=== PATIENT | male | born 1980 | race Caucasian/White ===

== ENCOUNTER 2025-01-30 15:47 | Emergency (ER) | payer BC, SELFPAY ==
[2025-01-30 15:57] VITALS: BP 161/98
[2025-01-30 16:27] LABS: Hematocrit 44.4 % (39.0-52.0); Hemoglobin 15.6 g/dL (13.0-18.0); Mean Corp Hgb Conc. 35.1 g/dL (33.0-37.0); Mean Corpuscular Volume 85.9 fL (80.0-94.0); Nucleated Red Blood Cells % 0 % (-); Red Cell Dist. Width 11.9 % (11.5-14.5)
[2025-01-30 16:36] LABS: ALT (SGPT) 30 U/L (0-50); AST (SGOT) 24 U/L (17-59); Albumin 5.0 g/dl (3.5-5.0); Alkaline Phosphatase 51 U/L (38-126); Blood Urea Nitrogen 18 mg/dl (9-20); Calcium 9.9 mg/dl (8.4-10.2); Carbon Dioxide 29 mmol/L (22-30); Chloride 100 mmol/L (98-107); Glucose 108 mg/dl (70-99); Potassium 4.3 mmol/L (3.5-5.1); Sodium 135 mmol/L (135-145); Total Protein 7.9 g/dl (6.3-8.2); eGFR > 60.00
--- NOTE | 2025-01-30 17:17 | ED.CVA ---
History of Present Illness
General
Chief Complaint: CVA/TIA Symptoms
Time Seen by Provider: 01/30/25 17:17
Onset of Stroke Symptoms
Onset of symptoms known: No
Time pt last seen normal is known: No
History of Present Illness
History of Present Illness:
FOCUSED PAST MEDICAL HISTORY
- CVA confirmed by MRI August 2024 at [facility]
REVIEW OF OLD RECORDS
- MRI report showed small thalamic stroke changes 2024, unremarkable echo, unremarkable carotids by MRA
Note:
CHIEF COMPLAINT(S)
Elevated blood pressure and sensation of coldness in both hands.
HISTORY OF PRESENT ILLNESS
The patient is a 44-year-old male with a history of stroke in August of this year, confirmed by MRI at [facility]. The patient reports an onset of symptoms in August, including numbness in the right hand, which progressed to numbness in the foot
on the same side. The patient was subsequently transferred to [facility] [address], where they were started on clopidogrel. The patient reports currently experiencing episodes of elevated blood pressure, especially in the late evening or night.
Recently, four days ago, the patient experienced elevated blood pressure (165/100 mmHg), a sensation of hot pain in the shins lasting 3-5 seconds, and increased heart rate. Upon measuring, the blood pressure returned to normal the following day but
the patient felt weak.
On Thanksgi, the patient noted coldness in both hands, unlike the right-sided symptoms during the previous stroke. The current episode of coldness is described as 'cold but with good pulses.' The patient associates fluctuations in blood pressure
with medication adjustments, particularly amlodipine and reports generally maintaining pressure around 115/74 mmHg while adhering to a walking routine.
The patient has maintained a record of their blood pressure readings and noted a sensation haim to a panic attack with anxiety, particularly due to symptoms appearing bilaterally. The patient requested Xanax for acute anxiety management in the
emergency department.
PAST MEDICAL AND SURGICAL HISTORY
History of stroke in August of this year.
Confirmed finding of a small left thalamic subacute infarct via MRI.
SOCIAL HISTORY
The patient has integrated regular walking into their routine to manage blood pressure.
MEDICATIONS
Aspirin 81 mg daily.
Losartan 100 mg daily.
Amlodipine 5 mg (reported as taking higher doses when needed).
REVIEW OF SYSTEMS
- Cardiovascular: Reports elevated blood pressure episodes.
- Neurological: Describes coldness in both hands without [id number]-[id number]-[id number] symptoms seen during the past stroke, and a sensation of numbness.
- Psychiatric: Reports symptoms suggestive of anxiety.
- Musculoskeletal: Reports transient pain in shins.
PHYSICAL EXAM
General: Alert, no acute distress. Elevated blood pressure
Skin: Warm, dry.
Head: Normocephalic, atraumatic.
Neck: Supple, trachea midline.
Ear, Nose, Mouth, and Throat: Oral mucosa moist.
Cardiovascular: Normal peripheral perfusion, no edema. Excellent pulses in all extremities
Respiratory: Respirations are non-labored.
Gastrointestinal: Abdomen nondistended.
Back: Normal range of motion, normal alignment.
Musculoskeletal: Normal range of motion, normal strength.
Neurological: Alert and oriented to person, place, time, and situation, no focal neurological deficit observed.
Psychiatric: Cooperative, appropriate mood & affect. Patient tends to perseverate over various medical concerns
PLAN
- Discussed the unlikely possibility of a stroke due to bilateral symptoms.
- Consideration of anxiety as a contributing factor; patient was offered Xanax for symptomatic relief in the emergency department.
- Encouraged continued monitoring of blood pressure, with patient self-management instruction reinforced.
- Recommended follow-up with the primary care physician or embedded processor for further blood pressure management.
DIFFERENTIAL DIAGNOSIS
The Differential Diagnosis includes, in no particular order and is not limited to:
1. Anxiety disorder.
2. Raynauds phenomenon.
3. Essential hypertension.
4. Peripheral neuropathy.
5. Hypothyroidism.
6. Cold exposure.
7. Panic disorder.
8. Medication side effects.
9. Chronic pain syndrome.
10. Sympathetic hyperactivity.
LABS
CBC and chemistries unremarkable
UPDATE
SUMMARY OF ENCOUNTER
The patient, a 44-year-old male, was seen in the emergency department due to elevated blood pressure and anxiety-related symptoms. The patient has a history of stroke earlier this year. He reported experiencing episodes of increased blood pressure
and anxiety with coldness in both hands. In the emergency department, the symptoms were suspected to be related to anxiety rather than a recurrent stroke or solely due to hypertension. The patients current symptoms were addressed with half of a
milligram of a medication known for anxiety management (likely a benzodiazepine), with a subsequent prescription provided. Patient education emphasized avoiding regular use due to its addictive potential, recommending use as needed for significant
anxiety episodes. The patient also sought advice on managing sleep disturbances and was advised on rptd-dbi-aunrwrt options.
ASSESSMENT
Anxiety with occasional elevations in blood pressure and sensation of coldness in hands.
PLAN
- Prescribed a low-dose medication for anxiety, with instructions to use sparingly.
- Discussed sxcp-kyl-jvoqrji sleep aid options for managing sleep disturbances, with a recommendation to avoid high doses.
PATIENT EDUCATION AND COUNSELING
- The addictive potential of prescribed anxiety medication was explained, emphasizing restricted use.
- Patient was informed about trying alternative treatments like valerian root if desired.
- Educated about using appropriate doses of cmnz-gzh-tfobopm sleep aids for better sleep quality.
FOLLOW-UP INSTRUCTIONS
Follow up with the primary care physician to discuss ongoing management of anxiety and blood pressure monitoring as well as to address sleep issues.
MEDICATION RECONCILIATION
- Prescribed: A low-dose prescription for anxiety (likely a benzodiazepine, specific name not confirmed) with instructions to use infrequently.
- Jfxe-biz-gznttdv suggestion: Doxylamine, as a sleep aid, with caution regarding dosage.
MEDICAL DECISION MAKING
1. Number and Complexity of Problems Addressed:
- Chronic conditions affecting care: History of stroke, hypertension, anxiety.
- DDx: Anxiety disorder, Raynauds phenomenon, essential hypertension, peripheral neuropathy, hypothyroidism, cold exposure, panic disorder, medication side effects, chronic pain syndrome, sympathetic hyperactivity.
2. Data:
- Category 1: Reviewed current symptoms in relation to past medical history.
- Category 3: Not applicable in this encounter.
3. Risk:
- Prescription drug management was discussed for anxiety medication, emphasizing cautious use due to addiction risk.
DIAGNOSIS
- Anxiety (F41.9)
- Essential Hypertension (I10)
Phy Exam
Physical Exam
Physical Exam:
See HPI
Course
Orders/Labs/Results
Orders:
Orders
01/30/25 16:01
EKG [Electrocardiogram (*1)] Urgent
Reason for Study: Vertigo / Dizzy
EKG- Treatment ONCE
01/30/25 16:11
Complete Blood Count/With Diff Urgent
Comprehensive Metabolic Panel Urgent
01/30/25 17:40
Alprazolam [Xanax] 0.5 mg PO NOW STA
Abnormal Lab Results
01/30/25
16:11
Absolute Neuts (auto) 7.9 H 10^3/uL
(1.4-6.5)
Neutrophils % 81.0 H %
(42.2-75.2)
Lymphocytes % 13.4 L %
(20.5-51.1)
Glucose 108 H mg/dl
(70-99)
01/30/25 16:11
01/30/25 16:11
Vital Signs
Initial and Last Documented VS:
Initial Vital Signs
Temp Pulse Resp BP Pulse Ox
36.6 C 84 16 161/98 99
01/30/25 15:57 01/30/25 15:57 01/30/25 15:57 01/30/25 15:57 01/30/25 15:57
Last Documented Vital Signs
Temp Pulse Resp BP Pulse Ox
36.6 C 74 13 139/99 95
01/30/25 15:57 01/30/25 18:30 01/30/25 18:30 01/30/25 18:00 01/30/25 18:30
*Pulse Oximetry
SaO2: 99
Oxygen Mode of Delivery: Room air
Patient hypoxic: no
*Critical Care Note
Total Time (30-74mins, 75-104mins- exclusive of procedures): Not Applicable
ED Attending Note
-
Portions of this chart may have been created with voice recognition software.� Occasional wrong word or��sound alike� substitutions may have occurred due to the inherent limitations of voice recognition software.
Discharge Plan
Departure
Patient Disposition: Home (Routine Discharge)
Date of Disposition: 01/30/25
Time of Disposition: 19:13
Patient with high blood pressure during this ER visit?: Yes
Discharge Problem:
Anxiety
Instructions: Anxiety in adults - ED (DC), BLOOD PRESSURE
Prescriptions:
New
alprazolam 0.5 mg tablet
0.5 mg PO DAILY PRN (Reason: anxiety) Qty: 8 0RF
Referrals:
Tiffany Torres MD [Family Provider]
Activity Restrictions/Additional Instructions:
I sent a prescription for alprazolam, Xanax, to your pharmacy. Limit the use of this due to high addiction potential. I also recommend aqlc-kkb-goqjxyq Unisom (the kind that has doxylamine 25 mg) on a nightly basis to help sleep. Return if worse
or other concerns. Follow-up your primary care doctor.
Interventions
Interventions:
*Risk Screen - Suicide Last Done: 01/30/25 15:57
*General Assessment Last Done: 01/30/25 15:57
*Neglect/Abuse Screening Last Done: 01/30/25 17:39
*ED- Fall Risk Assessment Last Done: 01/30/25 17:39
*ED COVID-19 Vaccine History Last Done: 01/30/25 15:57
*ED Influenza Vaccine History Last Done: 01/30/25 15:57
ED- Pulmonary Assessment Last Done: 01/30/25 17:22
ED- Neurological Assessment Last Done: 01/30/25 17:33
ED- Cardiac Assessment Last Done: 01/30/25 17:33
ED Swallowing Screen Last Done: 01/30/25 17:33
Discharge Date and Time
Print Language: SRI LANKAN
[2025-01-30 17:21] VITALS: BP 135/109; BMI 28.1
[2025-01-30 17:25] VITALS: BP 139/99
[2025-01-30] MEDS: XANAX 0.5 MG PO (17:50)
[2025-01-30 18:00] VITALS: BP 139/99
== END 2025-01-30 19:31 | disposition home or self-care (01) ==
LOC: EMR 15:47
PROVIDERS: Emergency Medicine; EMERGENCY PHYSICIAN Emergency Medicine; FAMILY PHYSICIAN Family Medicine
DX: F41.9 Anxiety disorder, unspecified (principal); R20.8 Other disturbances of skin sensation; R20.0 Anesthesia of skin; I10 Essential (primary) hypertension; Z86.73 Personal history of transient ischemic attack (TIA), and cerebral infarction without residual deficits; Z79.82 Long term (current) use of aspirin; Z79.899 Other long term (current) drug therapy
CPT/HCPCS: 99283; 80053; 85025; 93005